=== PATIENT | female | born 1955 | race Caucasian/White ===

== ENCOUNTER 2019-01-28 00:45 | Emergency (ER) | payer OTHER ==
[2019-01-28 01:25] LABS: #Basophils 0.1 thou/uL (0.0-0.2); #Eosinphils 0.1 thou/uL (0.0-0.7); #Monocytes 0.8 thou/uL (0.11-0.59); #Neutrophils 6.4 thou/uL (1.40-6.50); %Basophils 0.7 % (0.0-1.0); %Eosinophils 0.9 % (0.0-10.0); %Lymphocytes 20.9 % (21.0-51.0); %Monocytes 8.7 % (0.0-10.0); %Neutrophils 68.8 % (42.0-75.0); Hemoglobin 14.2 g/dL (12.0-16.0); Mean Corpuscular HGB CONC 33.2 g/dL (32.0-36.0); Mean Corpuscular Hemoglobin 30.9 pg (27.0-31.0); Mean Corpuscular Volume 93.2 fL (78.0-98.0); Mean Platelet Volume 8.1 fL (7.4-10.4); Platelet Count 261 thou/uL (130-400); RBC Distribution Width 11.6 % (11.5-14.5); Red Blood Cell (RBC) Count 4.61 mill/uL (4.20-5.40); White Blood Cell (WBC) Count 9.3 thou/uL (4.8-10.8)
[2019-01-28 01:43] LABS: ALT (SGPT) 31 U/L (8-55); AST (SGOT) 22 U/L (5-34); Albumin 4.2 g/dL (3.4-4.8); Alkaline Phosphatase 142 U/L (40-150); Anion Gap 12 mmol/L (10-20); BUN (Urea Nitrogen) 14 mg/dL (9.8-20.1); Bilirubin, Total 0.4 mg/dL (0.2-1.2); Calc. Creatinine Clearance 0 mL/min (70-130); Calcium 9.8 mg/dL (7.8-10.44); Carbon Dioxide 28 mmol/L (23-31); Chloride 104 mmol/L (98-107); Estimated GFR-MDRD 72; Globulin 4.1 g/dL (2.4-3.5); Glucose 108 mg/dL (80-115); Lipase 43 U/L (8-78); Potassium 3.7 mmol/L (3.5-5.1); Protein, Total 8.3 g/dL (6.0-8.3); Sodium 140 mmol/L (136-145)
[2019-01-28 02:22] LABS: CK (CPK) 110 U/L (29-168)
--- NOTE | 2019-01-28 08:09 | RAD ---
CHEST 1 VIEW: Date: 01/28/19 INDICATION: Chest pain. COMPARISON: None. FINDINGS: Lungs are clear. Heart size accentuated by exam technique. No pleural effusion or pneumothorax eviden t. No acute osseous abnormality is noted. IMPRESSION: No definite acute cardiopulmonary abnormality. POS: BH
--- NOTE | 2019-01-28 10:35 | CT ---
PRELIMINARY REPORT/[facility]/EMERGENCY AFTER HOURS PROCEDURE: EXAM: CT Angiography Chest With Contrast EXAM DATE/TIME: 01/28/2019 3:01 AM CLINICAL HISTORY: 63 years old, female; Signs and symptoms; Angina; Patient HX: [id number] presents to the ED with C/O intermi ttent sub sternal chest pain described as sharp onset 21:00. PT denies cough, wheezing, SOB, abdomina l pain, nausea and vomiting. PT reports she has never experienced similar symptoms in the past. PT reports that her pain does not radiated. PT reports a history of HTN. PT reports her last st ress test was 2-3 years ago, and was normal. PT reports she is not experiencing chest pain now. PT re ports she was a smoker many years ago. TECHNIQUE: Imaging protocol: Axial computed tomographic angiography images of the chest with intravenous contras t using CT angiography protocol. Coronal and sagittal reformatted images were created and reviewed. 3D rendering: MIP reconstructed images were created and reviewed. COMPARISON: No relevant prior studies available. FINDINGS: Pulmonary arteries: There is no evidence of peripheral filling defects within the pulmonary arterial circulation to suggest pulmonary embolism. Aorta: Normal. No aortic aneurysm. No aortic dissection. Thyroid: The thyroid gland is normal. Lungs: There is subpleural atelectasis of the dependent portions of the lungs. Pleural space: Normal. No pneumothorax. No pleural effusion. Heart: Normal. No cardiomegaly. No pericardial effusion. Mediastinum: The trachea is normal. Lymph nodes: Unremarkable. No enlarged lymph nodes. Bones/joints: Unremarkable. No acute fracture. Soft tissues: Unremarkable. IMPRESSION: There is no CT evidence of acute pulmonary embolism. Thank you for allowing us to participate in the care of your patient. Dictated and Authenticated by: Jan Hendrickson MD 01/28/2019 4:09 AM Central Time ([place] & [place]) FINAL REPORT EMERGENCY AFTER HOURS CTA CHEST: Date: 01/28/19 IMPRESSION: I agree with the preliminary report provided by [facility]. No evidence to suggest central or segmental pul monary embolus. POS:
[2019-01-28] MEDS ORDERED: ISOVUE-370 76%-LOCM 1 ML ONE (12:02)
== END 2019-01-28 06:04 | disposition home or self-care (01) ==
LOC: ERS 00:45
DX: R07.89 Other chest pain (principal); I10 Essential (primary) hypertension; J43.9 Emphysema, unspecified; Z79.899 Other long term (current) drug therapy
CPT/HCPCS: 36415; 71045; 71275; 80053; 82550; 83690; 84484; 85025; 85379; 93005; Q9966